=== PATIENT | female | born 1985 | race Caucasian/White ===

== ENCOUNTER → 2023-12-07 | Outpatient (CLI) | payer OTHER ==
[~2023-12-07] MED LIST: Prilosec Otc20 MG; Verotin-Gr Cap1 EACH
[2023-12-07 14:29] LABS: Free Thyroxine 1.16 ng/dL (0.70-1.60); Thyroid Stimulating Hormone 2.17 uIU/mL (0.360-4.800)
== END ==
LOC: LAB 12:14 → LAB SHORT 12:14
PROVIDERS: Hospitalist
DX: E06.3 Autoimmune thyroiditis (principal)
CPT/HCPCS: 84439; 84443